=== PATIENT | male | born 1960 | race African-American/Black ===

== ENCOUNTER 2022-11-24 01:38 | Inpatient (IN) | payer OTHER ==
[~2022-11-24] VITALS: Ht 175.3 cm; Wt 89.4 kg
[2022-11-24] VITALS (28 sets, daily range): BP systolic 110–141; BP diastolic 78–97; PULSE 97–116; RESP 16–33; TEMP 98.5–98.7
[2022-11-24] MEDS ORDERED: MORPHINE SULFATE 4 MG/ML CPJ (NOT FOR IM USE) IV STA (01:40)
[2022-11-24] MEDS ORDERED: ONDANSETRON HCL 4MG/2ML INJ IV STA (01:40)
[2022-11-24 02:15] LABS: CHLORIDE 107 mEq/L (98-107); INDEX HEMOLYSI 3 (1-3); INDEX ICTERIC 1 (1-4); INDEX LIPEMIC 1 (1-3); POTASSIUM 4.3 mEq/L (3.5-5.1); SODIUM 137 mEq/L (136-145)
[2022-11-24 02:18] LABS: PARTIAL THROMBOPLASTIN TIME 26.2 sec (23.4-31.0); PROTHROMBIN TIME 10.8 sec (9.6-11.0)
[2022-11-24 02:21] LABS: BASOPHILS % 0.3 % (0.0-2.0); HEMATOCRIT. 48.6 % (42.0-52.0); HEMOGLOBIN. 16.4 g/dL (14.0-18.0); LYMPHOCYTES % 7.1 % (20.0-50.0); MEAN CORPUSCULAR HEMOGLOBIN 29.1 pg (28.0-32.0); MEAN CORPUSCULAR HGB CONC 33.7 g/dL (31.0-37.0); MEAN CORPUSCULAR VOLUME 86.2 fL (80.0-94.0); MEAN PLATELET VOLUME 8.6 fl (7.4-10.4); MONOCYTES % 8.8 % (2.0-8.0); NEUTROPHILS % 83.8 % (40.0-76.0); PLATELET 324 x1000/uL (130-400); RED BLOOD CELL COUNT 5.64 mill/uL (4.7-6.1); RED CELL DISTRIBUTION WIDTH 12.9 % (11.6-14.6); WHITE BLOOD COUNT 16.2 x1000/uL (4.5-11.0)
[2022-11-24 02:28] LABS: DIFFERENTIAL COMMENT 1
[2022-11-24 02:38] LABS: ALANINE AMINOTRANSFERASE 93 IU/L (13-61); ALBUMIN 4.1 g/dL (3.4-5.0); ASPARTATE AMINOTRANSFERASE 396 IU/L (15-37); BILIRUBIN TOTAL 0.8 mg/dL (0.1-1.0); CALCIUM 9.5 mg/dL (8.5-10.1); CARBON DIOXIDE 27 mEq/L (21-32); CREATININE 1.1 mg/dL (0.6-1.3); ETHANOL BLOOD < 10 mg/dL (<10); GLUCOSE 123 mg/dL (70-105); NT PRO B-TYPE NATRIURETIC PEP 3822 pg/mL (5-125); PROTEIN TOTAL 8.1 g/dL (6.0-8.3); UREA NITROGEN BLOOD 16 mg/dL (7-21)
[2022-11-24 02:51] LABS: TROPONIN I HIGH SENSITIVITY > 25000 ng/L (<78)
[2022-11-24] MEDS ORDERED: HEPARIN 25,000 UNITS PREMIX 250 ML IV ONE (03:00)
[2022-11-24] MEDS ORDERED: HEPARIN 5000 UNITS/ML VIAL IV ONE (03:00)
[2022-11-24] MEDS ORDERED: NITROGLYCERIN OINT 1GM/INCH UDPKT TD NR (03:00)
[2022-11-24] MEDS ORDERED: HEPARIN 25,000 UNITS PREMIX 250 ML IV SCH (03:15)
[2022-11-24] MEDS ORDERED: HEPARIN 60 UNITS/KG BOLUS IV NR (03:15)
[2022-11-24] MEDS ORDERED: IODIXANOL 320MG/ML 100 ML BOTTLE IV ONE ×2 (03:47→04:42)
[2022-11-24] MEDS ORDERED: LIDOCAINE HCL 1% 10 MG/ML 10ML VIAL ONE (03:47)
[2022-11-24] MEDS ORDERED: HEPARIN 1000 UNITS/ML 10ML ONE (03:47)
[2022-11-24] MEDS ORDERED: FENTANYL CITRATE/PF 50MCG/ML 2ML VIAL ONE (04:01)
[2022-11-24] MEDS ORDERED: MIDAZOLAM HCL 2 MG/2 ML VIAL ONE (04:01)
[2022-11-24] MEDS ORDERED: EPTIFIBATIDE 2 MG/ML 10ML VIAL IV ONE (04:42)
[2022-11-24] MEDS ORDERED: EPTIFIBATIDE 100 ML IV ONE (04:44)
[2022-11-24] MEDS ORDERED: ONDANSETRON HCL 4MG/2ML INJ ONE (04:49)
[2022-11-24] MEDS ORDERED: CLOPIDOGREL 75MG TABLET ONE (05:01)
[2022-11-24] MEDS ORDERED: GUAIFENESIN 200MG/10ML SUGAR FREE UDC PO PRN (05:15)
[2022-11-24] MEDS ORDERED: ONDANSETRON HCL 4MG/2ML INJ IV PRN (05:15)
[2022-11-24] MEDS ORDERED: CLONIDINE 0.1MG TABLET PO PRN (05:15)
[2022-11-24] MEDS ORDERED: DEXTROSE 50% WATER 50ML SYRINGE IV PRN (05:15)
[2022-11-24] MEDS ORDERED: DOCUSATE SODIUM 100MG CAPSULE PO PRN (05:15)
[2022-11-24] MEDS ORDERED: ATROPINE SULFATE 1MG/10ML SYR IV PRN (05:15)
[2022-11-24] MEDS ORDERED: IPRATROPIUM/ALBUTEROL 0.5-3(2.5)MG/3ML NEB HHN PRN (05:15)
[2022-11-24] MEDS ORDERED: NALOXONE HCL 0.4MG/ML VIAL IV PRN (05:30)
[2022-11-24] MEDS: INSULIN LISPRO 100 UNITS/ML SUBCUT SCH ×4 (07:51→20:17)
[2022-11-24] MEDS: BLOOD SUGAR DIAGNOSTIC STRIP TEST SCH ×4 (07:51→20:17)
[2022-11-24] MEDS ORDERED: HEPARIN BOLUS PRN aPTT <30 IV (09:00)
[2022-11-24] MEDS ORDERED: HEPARIN BOLUS PRN aPTT 30-44 IV (09:00)
[2022-11-24] MEDS: MORPHINE SULFATE 2 MG/ML CPJ (NOT FOR IM USE) IV PRN ×2 (09:17→16:33)
[2022-11-24] MEDS: ASPIRIN 325MG TABLET PO SCH (09:17)
[2022-11-24] MEDS: CLOPIDOGREL 75MG TABLET PO SCH (09:18)
[2022-11-24] MEDS: SODIUM CHLORIDE 0.45% 1,000 ML IV SCH ×3 (09:18→21:15)
[2022-11-24] MEDS ORDERED: CHLORPROMAZINE HCL 25 MG TABLET PO PRN (10:00)
[2022-11-24 10:18] LABS: T4 FREE 1.2 ng/dL (0.76-1.46); THYROID STIMULATING HORMONE 0.52 uIU/mL (0.36-3.74)
[2022-11-24 10:43] LABS: FOLIC ACID (FOLATE) SERUM 16.1 ng/mL (>5.38)
[2022-11-24] MEDS: ACETAMINOPHEN 325MG TABLET PO PRN (12:31)
[2022-11-25] VITALS (34 sets, daily range): BP systolic 107–136; BP diastolic 67–107; PULSE 96–117; RESP 14–37; TEMP 98.5–99.9
[2022-11-25] MEDS: SODIUM CHLORIDE 0.45% 1,000 ML IV SCH (05:15)
[2022-11-25 05:49] LABS: HEMATOCRIT. 43.8 % (42.0-52.0); HEMOGLOBIN. 14.6 g/dL (14.0-18.0); MEAN CORPUSCULAR HEMOGLOBIN 29.2 pg (28.0-32.0); MEAN CORPUSCULAR HGB CONC 33.4 g/dL (31.0-37.0); MEAN CORPUSCULAR VOLUME 87.4 fL (80.0-94.0); MEAN PLATELET VOLUME 8.6 fl (7.4-10.4); PLATELET 233 x1000/uL (130-400); RED BLOOD CELL COUNT 5.01 mill/uL (4.7-6.1); WHITE BLOOD COUNT 20.3 x1000/uL (4.5-11.0)
[2022-11-25 06:00] LABS: CHLORIDE 106 mEq/L (98-107); INDEX HEMOLYSI 1 (1-3); INDEX ICTERIC 1 (1-4); INDEX LIPEMIC 1 (1-3); POTASSIUM 3.9 mEq/L (3.5-5.1); SODIUM 135 mEq/L (136-145)
[2022-11-25 06:01] LABS: DIFFERENTIAL COMMENT 1
[2022-11-25 06:05] LABS: CARBON DIOXIDE 26 mEq/L (21-32); CREATININE 0.9 mg/dL (0.6-1.3); GLUCOSE 100 mg/dL (70-105); UREA NITROGEN BLOOD 14 mg/dL (7-21)
[2022-11-25] MEDS: INSULIN LISPRO 100 UNITS/ML SUBCUT SCH ×2 (06:49→20:20)
[2022-11-25] MEDS: BLOOD SUGAR DIAGNOSTIC STRIP TEST SCH ×3 (06:49→20:19)
[2022-11-25 07:20] LABS: PLATELET ESTIMATE NORMAL
[2022-11-25] MEDS: ACETAMINOPHEN 325MG TABLET PO PRN (08:09)
[2022-11-25] MEDS: CLOPIDOGREL 75MG TABLET PO SCH (08:09)
[2022-11-25] MEDS: ASPIRIN 325MG TABLET PO SCH (08:09)
[2022-11-25] MEDS: METOCLOPRAMIDE HCL 10MG/2ML VIAL IV SCH ×2 (12:15→23:31)
[2022-11-26] MEDS: METOCLOPRAMIDE HCL 10MG/2ML VIAL IV SCH ×4 (05:17→23:36)
[2022-11-26] MEDS: INSULIN LISPRO 100 UNITS/ML SUBCUT SCH ×4 (06:56→21:00)
[2022-11-26] MEDS: BLOOD SUGAR DIAGNOSTIC STRIP TEST SCH ×4 (06:56→21:00)
[2022-11-26 08:00] VITALS: BP 116/76; PULSE 98; RESP 19; TEMP 96.5
[2022-11-26] MEDS: ASPIRIN 325MG TABLET PO SCH (08:51)
[2022-11-26] MEDS: CLOPIDOGREL 75MG TABLET PO SCH (08:51)
[2022-11-26 12:00] VITALS: BP 123/66; PULSE 92; RESP 19; TEMP 96.3
[2022-11-26 16:00] VITALS: BP 119/70; PULSE 109; RESP 20; TEMP 96.9
[2022-11-26 20:00] VITALS: BP 100/66; PULSE 92; RESP 18; TEMP 97
[2022-11-26 23:34] VITALS: BP 104/70; PULSE 98; RESP 15; TEMP 96.7
[2022-11-27 04:00] VITALS: BP 106/76; PULSE 96; RESP 18; TEMP 97
[2022-11-27] MEDS: METOCLOPRAMIDE HCL 10MG/2ML VIAL IV SCH (06:04)
[2022-11-27] MEDS: BLOOD SUGAR DIAGNOSTIC STRIP TEST SCH (06:15)
[2022-11-27] MEDS: INSULIN LISPRO 100 UNITS/ML SUBCUT SCH (06:15)
[2022-11-27 08:00] VITALS: BP 108/73; PULSE 93; RESP 19; TEMP 96.5
[2022-11-27] MEDS: ASPIRIN 325MG TABLET PO SCH (08:28)
[2022-11-27] MEDS: CLOPIDOGREL 75MG TABLET PO SCH (08:28)
[2022-11-27 11:11] VITALS: BP 108/73; PULSE 93; TEMP 96.5; O2SAT 96
== END 2022-11-27 14:05 | disposition home or self-care (01) | DRG 246 ==
LOC: ER 01:43 → MICUSO 03:51 → 8WST 11-25 22:24
PROVIDERS: ADMIT Hospitalist; ATTEND Hospitalist
PROC: 027035Z Dilation of Coronary Artery, One Artery with Two Drug-eluting Intraluminal Devices, Percutaneous Approach (ICD-10-PCS; principal; 2022-11-24)
PROC: 4A023N8 Measurement of Cardiac Sampling and Pressure, Bilateral, Percutaneous Approach (ICD-10-PCS; 2022-11-24)
PROC: B211YZZ Fluoroscopy of Multiple Coronary Arteries using Other Contrast (ICD-10-PCS; 2022-11-24)
PROC: B215YZZ Fluoroscopy of Left Heart using Other Contrast (ICD-10-PCS; 2022-11-24)
DX: T82.855A Stenosis of coronary artery stent, initial encounter (principal); I21.09 ST elevation (STEMI) myocardial infarction involving other coronary artery of anterior wall; U07.1 COVID-19; I25.110 Atherosclerotic heart disease of native coronary artery with unstable angina pectoris; D72.829 Elevated white blood cell count, unspecified; I11.0 Hypertensive heart disease with heart failure; R73.9 Hyperglycemia, unspecified; R74.01 Elevation of levels of liver transaminase levels; E78.5 Hyperlipidemia, unspecified; I50.9 Heart failure, unspecified; I25.2 Old myocardial infarction; Z79.02 Long term (current) use of antithrombotics/antiplatelets; Z79.82 Long term (current) use of aspirin; Z79.899 Other long term (current) drug therapy; Y83.8 Other surgical procedures as the cause of abnormal reaction of the patient, or of later complication, without mention of misadventure at the time of the procedure; Y92.89 Other specified places as the place of occurrence of the external cause
CPT/HCPCS: 36415; 71045; 80048; 80053; 80061; 80320; 82607; 82746; 82962; 83036; 83540; 83550; 83605; 83735; 83880; 84100; 84145; 84439; 84443; 84484; 85025; 85347; 87426; 93005; 93970; 99291; C9803; J1327; J1644; J1815; J2250; J2270; J2405; J2765; J3010; J3490; Q0161; Q9967; G0480

== ENCOUNTER 2023-02-18 10:31 | Inpatient (IN) | payer OTHER ==
[~2023-02-18] VITALS: Ht 182.9 cm; Wt 83.9 kg
[2023-02-18] MEDS ORDERED: MECLIZINE 25MG TABLET PO ONE (11:15)
[2023-02-18] MEDS ORDERED: SODIUM CHLORIDE 0.9% 1,000 ML IV ONE (11:15)
[2023-02-18] MEDS ORDERED: ONDANSETRON HCL 4MG/2ML INJ IV ONE ×2 (11:15→15:15)
[2023-02-18] MEDS ORDERED: MECLIZINE 12.5MG TABLET PO NR (11:30)
[2023-02-18 11:58] LABS: HEMATOCRIT. 53.2 % (42.0-52.0); HEMOGLOBIN. 17.9 g/dL (14.0-18.0); MEAN CORPUSCULAR HEMOGLOBIN 28.6 pg (28.0-32.0); MEAN CORPUSCULAR HGB CONC 33.7 g/dL (31.0-37.0); MEAN CORPUSCULAR VOLUME 84.8 fL (80.0-94.0); MEAN PLATELET VOLUME 8.5 fl (7.4-10.4); PLATELET 439 x1000/uL (130-400); RED BLOOD CELL COUNT 6.28 mill/uL (4.7-6.1); RED CELL DISTRIBUTION WIDTH 13.4 % (11.6-14.6)
[2023-02-18 12:02] LABS: DIFFERENTIAL COMMENT 1
[2023-02-18 12:24] LABS: PLATELET ESTIMATE SLIGHTLY INCREASED
[2023-02-18 12:31] LABS: ALANINE AMINOTRANSFERASE 28 IU/L (10-49); ALBUMIN 4.2 g/dL (3.2-4.8); ASPARTATE AMINOTRANSFERASE 41 IU/L (<34); BILIRUBIN TOTAL 1.8 mg/dL (0.1-1.0); CALCIUM 9.7 mg/dL (8.7-10.4); CARBON DIOXIDE 27 mEq/L (21-32); CHLORIDE 94 mEq/L (98-107); CREATININE 1.2 mg/dL (0.6-1.3); GLUCOSE 109 mg/dL (70-105); POTASSIUM 3.7 mEq/L (3.5-5.1); SODIUM 133 mEq/L (136-145); UREA NITROGEN BLOOD 15 mg/dL (9-23)
[2023-02-18 13:55] LABS: TROPONIN I HIGH SENSITIVITY 90 ng/L (3.0-53)
[2023-02-18] MEDS ORDERED: ASPIRIN 81MG TABLET PO ONE (14:30)
[2023-02-18] MEDS ORDERED: ASPIRIN 325MG TABLET PO ONE (15:45)
[2023-02-18 15:47] LABS: D-DIMER 0.89 mg/L FEU (<0.50); INR 1.1
[2023-02-18 17:22] LABS: TROPONIN I HIGH SENSITIVITY 94 ng/L (3.0-53)
[2023-02-18] MEDS ORDERED: AZITHROMYCIN 500 MG in DEXT 5% WATER 250 ML IV SCH (20:30)
[2023-02-18] MEDS ORDERED: CEFTRIAXONE 1GM PREMIX 50 ML IV ONE (20:30)
[2023-02-18] MEDS ORDERED: AZITHROMYCIN 500MG/250ML 250 ML IV NR (21:27)
[2023-02-18 22:00] VITALS: BP_SYST 101; BP_SYST 119; BP_SYST 136; BP_DIAS 63; BP_DIAS 74; BP_DIAS 88; PULSE 103; PULSE 76; PULSE 88; RESP 16; RESP 18; TEMP 97.2; TEMP 97.7
[2023-02-19] VITALS (7 sets, daily range): BP systolic 101–124; BP diastolic 63–87; PULSE 74–100; RESP 16–18; TEMP 97–97.8
[2023-02-19] MEDS ORDERED: IPRATROPIUM/ALBUTEROL 0.5-3(2.5)MG/3ML NEB HHN PRN (01:30)
[2023-02-19] MEDS ORDERED: GUAIFENESIN 200MG/10ML SUGAR FREE UDC PO PRN (01:30)
[2023-02-19] MEDS ORDERED: CLONIDINE 0.1MG TABLET PO PRN (01:30)
[2023-02-19] MEDS ORDERED: DEXT 5%/0.9% NACL 1,000 ML IV ONE (01:30)
[2023-02-19] MEDS ORDERED: MAGNESIUM/ALUMINUM HYDROXIDE/SIMETHICONE 30ML UDC PO PRN (01:30)
[2023-02-19] MEDS ORDERED: ONDANSETRON HCL 4MG/2ML INJ IV PRN (01:30)
[2023-02-19] MEDS ORDERED: DOCUSATE SODIUM 100MG CAPSULE PO PRN (01:30)
[2023-02-19] MEDS ORDERED: ACETAMINOPHEN 325MG TABLET PO PRN ×2 (01:30)
[2023-02-19] MEDS ORDERED: PANTOPRAZOLE SODIUM 40 MG/VIAL IV SCH (03:00)
[2023-02-19] MEDS ORDERED: NITROGLYCERIN 0.4MG TABLET SL SL PRN (03:00)
[2023-02-19 08:11] LABS: CREATINE KINASE MB FRACTION 5.6 ng/mL (0.5-3.6)
[2023-02-19] MEDS: ASPIRIN 81MG TABLET PO SCH (08:26)
[2023-02-19] MEDS ORDERED: ENOXAPARIN 40MG/0.4ML SYR SUBCUT SCH (09:00)
[2023-02-19] MEDS ORDERED: NITROGLYCERIN OINT 1GM/INCH UDPKT TD SCH (09:30)
[2023-02-19] MEDS: CLOPIDOGREL 75MG TABLET PO SCH (09:48)
[2023-02-19] MEDS: PANTOPRAZOLE SODIUM 40 MG/VIAL IV SCH (09:48)
[2023-02-19 17:06] LABS: CREATINE KINASE MB FRACTION 3.9 ng/mL (0.5-3.6)
[2023-02-19] MEDS ORDERED: ATORVASTATIN CALCIUM 10MG TABLET PO SCH ×2 (21:00)
[2023-02-19 21:44] LABS: CLARITY URINE CLEAR (CLEAR); COLOR URINE YELLOW (YELLOW); GLUCOSE URINE NEGATIVE (NEGATIVE); KETONES URINE NEGATIVE (NEGATIVE); LEUKOCYTE ESTERASE URINE NEGATIVE (NEGATIVE); NITRITE URINE NEGATIVE (NEGATIVE); OCCULT BLOOD URINE NEGATIVE (NEGATIVE); PROTEIN URINE NEGATIVE (NEGATIVE); SPECIFIC GRAVITY URINE 1.015 (1.005-1.030)
[2023-02-19 21:53] LABS: *AMPHETAMINES SCREEN URINE NEGATIVE (NEGATIVE); *BARBITURATES SCREEN URINE NEGATIVE (NEGATIVE); *BENZODIAZEPINES SCREEN URINE NEGATIVE (NEGATIVE); *COCAINE SCREEN URINE NEGATIVE (NEGATIVE); CANNABINOID URINE SCREEN PRESUMPTIVE POSITIVE (NEGATIVE); ECSTASY MDMA SCREEN URINE NEGATIVE (NEGATIVE); METHADONE URINE SCREEN Neg (NEGATIVE); OPIATES URINE SCREEN NEGATIVE (NEGATIVE); PHENCYCLIDINE URINE SCREEN NEGATIVE (NEGATIVE)
[2023-02-20] VITALS: BP 99/50; PULSE 84; RESP 18; TEMP 97.9
[2023-02-20 00:05] LABS: CREATINE KINASE MB FRACTION 2.9 ng/mL (0.5-3.6)
[2023-02-20 04:00] VITALS: BP 100/56; PULSE 75; RESP 18; TEMP 97.6
[2023-02-20 06:30] LABS: ALANINE AMINOTRANSFERASE 20 IU/L (10-49); ASPARTATE AMINOTRANSFERASE 27 IU/L (<34); CALCIUM 8.3 mg/dL (8.7-10.4); CARBON DIOXIDE 31 mEq/L (21-32); CHLORIDE 99 mEq/L (98-107); CHOLESTEROL 123 mg/dL (<200); GLUCOSE 94 mg/dL (70-105); HDL CHOLESTEROL 26 mg/dL (>55); LDL CHOLESTEROL 74 mg/dL (5-100); POTASSIUM 3.1 mEq/L (3.5-5.1); SODIUM 135 mEq/L (136-145); T4 FREE 1.48 ng/dL (0.89-1.76); THYROID STIMULATING HORMONE 0.46 uIU/mL (0.55-4.78); TRIGLYCERIDE 80 mg/dL (0-150); UREA NITROGEN BLOOD 11 mg/dL (9-23)
[2023-02-20 06:31] LABS: BASOPHILS % 0.6 % (0.0-2.0); EOSINOPHILS % 3.3 % (0.0-5.0); HEMATOCRIT. 41.3 % (42.0-52.0); HEMOGLOBIN. 13.7 g/dL (14.0-18.0); LYMPHOCYTES % 35.8 % (20.0-50.0); MEAN CORPUSCULAR HEMOGLOBIN 28.7 pg (28.0-32.0); MEAN CORPUSCULAR HGB CONC 33.3 g/dL (31.0-37.0); MEAN CORPUSCULAR VOLUME 86.3 fL (80.0-94.0); MEAN PLATELET VOLUME 8.5 fl (7.4-10.4); MONOCYTES % 10.3 % (2.0-8.0); PLATELET 341 x1000/uL (130-400); RED BLOOD CELL COUNT 4.78 mill/uL (4.7-6.1); RED CELL DISTRIBUTION WIDTH 13.3 % (11.6-14.6); WHITE BLOOD COUNT 6.3 x1000/uL (4.5-11.0)
[2023-02-20 06:45] LABS: PROTEIN TOTAL 5.5 g/dL (6.0-8.3)
[2023-02-20 08:00] VITALS: BP 109/71; PULSE 84; RESP 17; TEMP 97.5
[2023-02-20] MEDS: CLOPIDOGREL 75MG TABLET PO SCH (08:49)
[2023-02-20] MEDS: ASPIRIN 81MG TABLET PO SCH (08:49)
[2023-02-20] MEDS: PANTOPRAZOLE SODIUM 40 MG/VIAL IV SCH (08:49)
[2023-02-20] MEDS ORDERED: KCL 20MEQ/100ML PREMIX 100 ML IV SCH (10:00)
[2023-02-20 12:00] VITALS: BP 101/60; PULSE 81; RESP 19; TEMP 98.4
[2023-02-20] MEDS ORDERED: POTASSIUM CHLORIDE 20MEQ TABLET SR PO NR (12:45)
[2023-02-20 12:49] VITALS: BP 101/60; PULSE 81; TEMP 98.4; O2SAT 100
[2023-02-21] MEDS ORDERED: FAMOTIDINE 20MG/2ML VIAL IV SCH (09:00)
== END 2023-02-20 15:00 | disposition home or self-care (01) | DRG 391 ==
LOC: ER 10:41 → 5WST 20:14
PROVIDERS: ADMIT Hospitalist; ATTEND Hospitalist
DX: A08.4 Viral intestinal infection, unspecified (principal); I21.A1 Myocardial infarction type 2; E87.1 Hypo-osmolality and hyponatremia; I10 Essential (primary) hypertension; I25.10 Atherosclerotic heart disease of native coronary artery without angina pectoris; E86.0 Dehydration; E78.5 Hyperlipidemia, unspecified; E87.6 Hypokalemia; Z20.822 Contact with and (suspected) exposure to COVID-19; E87.8 Other disorders of electrolyte and fluid balance, not elsewhere classified; Z79.02 Long term (current) use of antithrombotics/antiplatelets; Z95.5 Presence of coronary angioplasty implant and graft
CPT/HCPCS: 36415; 71045; 71275; 74177; 80053; 80061; 80305; 81003; 82550; 82553; 82962; 84439; 84443; 84484; 85025; 85379; 87426; 93005; 99291; C9113; C9803; J0456; J0696; J2405; J3480; J7030; J7060; J8597

== ENCOUNTER 2023-04-23 13:16 | Inpatient (IN) | payer OTHER ==
[~2023-04-23] VITALS: Ht 175.3 cm; Wt 80.7 kg
[2023-04-23 15:31] LABS: BASOPHILS % 0.4 % (0.0-2.0); EOSINOPHILS % 0.1 % (0.0-5.0); HEMATOCRIT. 42.6 % (42.0-52.0); HEMOGLOBIN. 14.3 g/dL (14.0-18.0); LYMPHOCYTES % 8.8 % (20.0-50.0); MEAN CORPUSCULAR HEMOGLOBIN 29.4 pg (28.0-32.0); MEAN CORPUSCULAR HGB CONC 33.7 g/dL (31.0-37.0); MEAN CORPUSCULAR VOLUME 87.2 fL (80.0-94.0); MEAN PLATELET VOLUME 7.8 fl (7.4-10.4); MONOCYTES % 7.8 % (2.0-8.0); NEUTROPHILS % 82.9 % (40.0-76.0); PLATELET 497 x1000/uL (130-400); RED BLOOD CELL COUNT 4.88 mill/uL (4.7-6.1); RED CELL DISTRIBUTION WIDTH 13.8 % (11.6-14.6); WHITE BLOOD COUNT 14.7 x1000/uL (4.5-11.0)
[2023-04-23 15:48] LABS: ALANINE AMINOTRANSFERASE 12 IU/L (10-49); ALBUMIN 4.6 g/dL (3.2-4.8); ASPARTATE AMINOTRANSFERASE 19 IU/L (<34); BILIRUBIN TOTAL 0.9 mg/dL (0.1-1.0); CALCIUM 10.1 mg/dL (8.7-10.4); CARBON DIOXIDE 26 mEq/L (21-32); CHLORIDE 97 mEq/L (98-107); CREATININE 0.9 mg/dL (0.6-1.3); GLUCOSE 107 mg/dL (70-105); POTASSIUM 4.1 mEq/L (3.5-5.1); PROTEIN TOTAL 7.7 g/dL (6.0-8.3); SODIUM 135 mEq/L (136-145); TROPONIN I HIGH SENSITIVITY 25 ng/L (3.0-53); UREA NITROGEN BLOOD 15 mg/dL (9-23)
[2023-04-23] MEDS: ASPIRIN 325MG EC TABLET PO ONE (16:15)
[2023-04-23] MEDS ORDERED: SODIUM CHLORIDE 0.9% 250 ML IV ONE (16:15)
[2023-04-23] MEDS: CEFTRIAXONE 1GM PREMIX 50 ML IV ONE (16:30)
[2023-04-23] MEDS: SODIUM CHLORIDE 0.9% 1000ML BAG (SEPSIS BOLUS) IV ONE (16:30)
[2023-04-23] MEDS ORDERED: CALCIUM GLUCONATE 100MG/ML 10ML VIAL IV ONE (19:15)
[2023-04-23 19:51] LABS: TROPONIN I HIGH SENSITIVITY 27 ng/L (3.0-53)
[2023-04-23] MEDS: CEFTRIAXONE 1GM PREMIX 50 ML IV NR (21:35)
[2023-04-23] MEDS: ASPIRIN 325MG EC TABLET PO NR (21:36)
[2023-04-23 22:30] VITALS: BP 147/94; PULSE 111; RESP 20; TEMP 97.8
[2023-04-23] MEDS ORDERED: ZOLPIDEM TARTRATE 5MG TABLET PO PRN (23:15)
[2023-04-23] MEDS ORDERED: MORPHINE SULFATE 2 MG/ML CPJ (NOT FOR IM USE) IV PRN (23:15)
[2023-04-23] MEDS ORDERED: CLONIDINE 0.1MG TABLET PO PRN (23:15)
[2023-04-24] VITALS: BP 119/63; PULSE 112; RESP 19; TEMP 97.5
[2023-04-24] MEDS ORDERED: ASPI-1497 MT (00:06)
[2023-04-24] MEDS ORDERED: ATOR40TA70 PO (00:06)
[2023-04-24] MEDS ORDERED: CLOP75TA33 PO (00:06)
[2023-04-24] MEDS: METOCLOPRAMIDE HCL 10MG/2ML VIAL IV NR (00:21)
[2023-04-24] MEDS: CHLORPROMAZINE HCL 25MG/1ML AMP IM NR (00:21)
[2023-04-24] MEDS: SODIUM CHLORIDE 0.9% 1,000 ML IV SCH (00:22)
[2023-04-24 04:00] VITALS: BP 105/73; PULSE 109; RESP 16; TEMP 97.3
[2023-04-24 06:26] LABS: HEMATOCRIT 37.3 % (42.0-52.0); HEMOGLOBIN 12.6 g/dL (14.0-18.0); MEAN CORPUSCULAR HGB CONC 33.7 g/dL (31.0-37.0); MEAN CORPUSCULAR VOLUME 85.9 fL (80.0-94.0); PLATELET 356 x1000/uL (130-400); RED BLOOD CELL COUNT 4.34 mill/uL (4.7-6.1); RED CELL DISTRIBUTION WIDTH 13.7 % (11.6-14.6); WHITE BLOOD COUNT 10.8 x1000/uL (4.5-11.0)
[2023-04-24] MEDS: ONDANSETRON HCL 4MG/2ML INJ IV PRN (06:49)
[2023-04-24 07:04] LABS: CALCIUM 8.5 mg/dL (8.7-10.4); CARBON DIOXIDE 26 mEq/L (21-32); CHLORIDE 104 mEq/L (98-107); CREATININE 0.8 mg/dL (0.6-1.3); GLUCOSE 86 mg/dL (70-105); POTASSIUM 3.5 mEq/L (3.5-5.1); SODIUM 137 mEq/L (136-145); TROPONIN I HIGH SENSITIVITY 21 ng/L (3.0-53); UREA NITROGEN BLOOD 19 mg/dL (9-23)
[2023-04-24 08:00] VITALS: BP 156/89; PULSE 89; RESP 20; TEMP 97.4
[2023-04-24] MEDS: CLOPIDOGREL 75MG TABLET PO SCH (08:26)
[2023-04-24] MEDS: PANTOPRAZOLE SODIUM 40 MG/VIAL IV SCH (08:28)
[2023-04-24 12:00] VITALS: BP 137/84; PULSE 104; RESP 20; TEMP 97.4
[2023-04-24] MEDS: CHLORPROMAZINE HCL 25MG/1ML AMP IM PRN (13:56)
[2023-04-24] MEDS ORDERED: NALOXONE HCL 0.4MG/ML VIAL IV PRN (15:30)
[2023-04-24 16:00] VITALS: BP 110/60; PULSE 115; RESP 18; TEMP 97.4
[2023-04-24 17:11] LABS: TROPONIN I HIGH SENSITIVITY 40 ng/L (3.0-53)
[2023-04-24 20:00] VITALS: BP 106/62; PULSE 111; RESP 20; TEMP 99.2
[2023-04-25] VITALS: BP 110/65; PULSE 109; RESP 20; TEMP 98.9
[2023-04-25 00:11] LABS: TROPONIN I HIGH SENSITIVITY 38 ng/L (3.0-53)
[2023-04-25 04:00] VITALS: BP 127/80; PULSE 102; RESP 18; TEMP 97.7
[2023-04-25 08:00] VITALS: BP 139/75; PULSE 95; RESP 20; TEMP 97.5
[2023-04-25 12:00] VITALS: BP 129/77; PULSE 107; RESP 17; TEMP 97
[2023-04-25 16:00] VITALS: BP 149/63; PULSE 93; RESP 18; TEMP 97.3
[2023-04-25 20:00] VITALS: BP 129/83; PULSE 111; RESP 18; TEMP 97.5
[2023-04-26] VITALS: BP 111/69; PULSE 100; RESP 18; TEMP 98.4
[2023-04-26 04:00] VITALS: BP 124/81; PULSE 95; RESP 19; TEMP 97.5
[2023-04-26 08:00] VITALS: BP 123/80; PULSE 70; RESP 22; TEMP 97.4
[2023-04-26] MEDS: FAMOTIDINE 20MG/2ML VIAL IV SCH (08:55)
[2023-04-26 15:39] VITALS: BP 129/75; PULSE 87; TEMP 97.6; O2SAT 98
[2023-04-26 16:00] VITALS: BP 106/85; PULSE 83; RESP 18; TEMP 98.4
[2023-04-27] MEDS ORDERED: IOHEXOL-350 100 ML BOTTLE ONE (10:23)
== END 2023-04-26 16:45 | disposition home or self-care (01) | DRG 392 ==
LOC: ER 13:16 → EDBEDREQ 18:04 → 7WST 22:37
PROVIDERS: ADMIT Internal Medicine; ATTEND Internal Medicine
DX: K29.70 Gastritis, unspecified, without bleeding (principal); I31.39 Other pericardial effusion (noninflammatory); I10 Essential (primary) hypertension; E78.00 Pure hypercholesterolemia, unspecified; I25.10 Atherosclerotic heart disease of native coronary artery without angina pectoris; Z95.5 Presence of coronary angioplasty implant and graft; Z79.899 Other long term (current) drug therapy
CPT/HCPCS: 36415; 71045; 71275; 80048; 80053; 83605; 83880; 84145; 84484; 85025; 85027; 85379; 93005; 93306; 99291; C9113; J0610; J0696; J2405; J2765; J3230; J3490; J7030; J7050; Q9967